=== PATIENT | male | born 1945 | race Two or more races ===

== ENCOUNTER 2023-02-09 19:03 | Emergency (ER) | payer OTHER ==
[~2023-02-09] VITALS: Ht 182.9 cm; Wt 72.6 kg
[2023-02-09] MEDS ORDERED: SYNTHROID75 MCG (19:15)
[2023-02-09 20:44] LABS: HEMATOCRIT 40.8 % (39.0-48.0); HEMOGLOBIN 13.9 g/dL (13-16.00); MEAN CELL VOLUME 87.4 fL (80.0-100.00); MEAN CORPUSCULAR HEMOGLOBIN 29.9 pg (27.00-32.0); MEAN CORPUSCULAR HGB CONC 34.1 g/dl (32.0-36.0); RED BLOOD COUNT 4.67 M/uL (4.00-6.00); RED CELL DISTRIBUTION WIDTH 13.7 % (11.5-14.5)
[2023-02-09 20:46] LABS: PLATELET COUNT 117 K/uL (150-450)
[2023-02-09 20:46] LABS: PH,URINE 6.5 (5.0-8.0); URINE APPEARANCE Clear; URINE BILIRRUBIN Negative (NEGATIVE); URINE BLOOD Small; URINE COLOR Yellow; URINE GLUCOSE Negative (NEGATIVE); URINE LEUKOCYTE Negative; URINE NITRATE Negative; URINE PROTEIN Negative (NEGATIVE); URINE UROBILINOGEN 0.2 E.U./dl
[2023-02-09 20:50] LABS: URINE RBC 41.9 uL (0.0-20.8); URINE WBC 2.6 uL (0.0-23.2)
[2023-02-09 20:51] LABS: URINE EPITHELIAL CELLS 0.4 uL (0.0-38.8)
[2023-02-09 21:04] LABS: INR 1.06; PARTIAL THROMBOPLASTIN TIME 27.3 SECONDS (22.0-34.0); PROTHROMBIN TIME 11.1 SECONDS (9.0-11.5)
[2023-02-09 21:05] LABS: CALCIUM 8.4 mg/dL (8.5-10.1); CREATININE SERUM 0.93 mg/dL (0.70-1.30); POTASSIUM 3.68 mEq/L (3.5-5.1)
[2023-02-09] MEDS ORDERED: OSEL75CA PO (21:47)
== END 2023-02-09 21:50 | disposition home or self-care (01) ==
LOC: ER 19:03
PROVIDERS: General Practice
DX: J10.1 Influenza due to other identified influenza virus with other respiratory manifestations (principal); E03.9 Hypothyroidism, unspecified; Z20.822 Contact with and (suspected) exposure to COVID-19